=== PATIENT | female | born 1980 | race Caucasian/White ===

== ENCOUNTER 2024-08-14 10:14 | Outpatient (CLI) | payer BC, SELFPAY ==
--- NOTE | ~2024-08-14 | US_ITS ---
US transvaginal Ordering provider: Randi Robles, BINDER OPERATOR History: . Enlarged uterus . Comparison: None. Technique: endovaginal ultrasound of the pelvis (Doppler ultrasound interrogation techniques used as needed for this exam.) FINDINGS: CERVIX: Normal. UTERUS: Measures 10.4x 5.5x 5.7 cm in length which is within normal limits and is anteverted. Multip le heterogenous masses with the largest measuring 2.7 x 3.1 x 2.9 cm. ENDOMETRIUM: Normal in thickness measuring 6.8 mm. (Note: the premenopausal endometrium may measure u p to 16 mm when in the secretory phase.) No endometrial masses, cysts or fluid. CUL DE SAC: No free fluid. RIGHT OVARY: Normal in size measuring 2.8x 2.4x 2.4 cm. Normal echotexture. Doppler vascular flow pre sent. LEFT OVARY: Normal in size measuring 1.8x 1.7x 1.7 cm. Normal echotexture. Doppler vascular flow pres ent. ADNEXA: Normal. No mass. IMPRESSION: Multiple fibroids. Otherwise, normal pelvic ultrasound. Reviewed, dictated and finalized at location A.
== END 2024-08-14 10:15 | disposition home or self-care (01) ==
PROVIDERS: PCP Family Medicine; Visit Provider Nurse Practitioner
DX: E85.2 Heredofamilial amyloidosis, unspecified (principal); D25.9 Leiomyoma of uterus, unspecified
CPT/HCPCS: 76830

== ENCOUNTER 2025-08-10 01:54 | Day surgery (SDC) | payer BC, SELFPAY ==
--- NOTE | 2025-07-28 14:30 | PC.NURSE ---
[facility] has started construction of its new state of the art ER which will open Spring 2026. With this, we anticipate parking may be a challenge for some our surgical patients and families. Parking spaces are limited but are available for all Surgical, obstetrics, and ER patients sharing this lot. If you arrive and find you are having a hard time finding a parking space, please note that we understand the challenges, please drive around the hospital and park near Hospital Entrance 1. When you enter this entrance, you can ask a volunteer to direct or take you back to the surgical waiting area to check in. We appreciate everyone?s understanding of these expected challenges while we build for your future. Report to the Outpatient Waiting Room, entrance under the green pavilion located off [address], at time __6:00am on date __[phone] . Planned Procedure Time: __7:30am .? Time changes happen often and if your time is changed the preop area will call you the afternoon before. - You and your visitor will be asked to self-screen and do not enter if you have any COVID symptoms. Please call surgeon if you need to reschedule. - A mask is optional within the hospital at this time. Patients may have clear liquids (water, carbonated beverages, clear teas, apple juice) until 3 hours prior to surgery with a maximum of 20 ounces. stop at 4:30am - No food from midnight until time of surgery and no smoking, or chewing tobacco (or any form of nicotine). No chewing gum, candy or mints. Take only the following medications with a SIP of water on the morning of surgery: ____n/a DO NOT STOP ANY OF YOUR OTHER PRESCRIPTION MEDICATIONS PRIOR TO SURGERY EXCEPT THE FOLLOWING *Hold all vitamins and supplements for 3 days per anesthesiologist. Medications to discontinue per physician n/a Please no make-up, nail turkmen, hairspray, perfume, deodorant, or body powder the day of surgery.? No jewelry (including any body piercings) or valuables the day of surgery, leave them at home.? Please take a shower or bath the night before, or the morning of, surgery with an antibacterial soap.? Wear comfortable, loose fitting clothing.? - Jewelry must be removed prior to entering the operating room.? Rings and piercings that are not removed may be cut off. - The hospital will not accept responsibility for valuables.? - Please leave all valuables, including medications, at home the day of surgery. If you are going home after surgery, a licensed otr flatbed company truck driver must drive you home.? - NO public transportation without another adult if you receive anesthesia. - We recommend that an adult stay with you for 24 hours following discharge. - We also recommend that you do not drive, make important decision, drink alcoholic beverages, or take any drugs that were not prescribed by your health care provider for at least 24 hours after your discharge time. Follow any additional instructions given to you from your surgeon. Telephone instructions given to __patient/shanti and asked if any additional questions and then verbalized understanding. Patient advised to call surgeon office or pre surgery nurse liaison [phone] if any additional questions.
[2025-07-28 14:37] VITALS: BMI 37.5
--- OUTSIDE RECORDS SUMMARY | 2025-08-10 01:57 | XMS_ITS | Clinical Summary ---
Author Organization [facility] [employer] Address [address] [place] [address] Care Team Providers Care Radio Mechanic Helper Name Role Phone Prasanna Yost MD Primary Care Provider [phone] Source Comments [facility],non-owned Affiliates and Associated Physician Practices is amultiple site organization consisting of ambulatory clinics and hospital sitesin [place], [place], [place]. This disclosure is being madepursuant to the Care Everywhere program and may not contain all information available regarding this patient. Last updated 18.[facility] [employer] Allergies Active Allergy Reactions Criticality Noted Date Comments Penicillins Urticaria 05/29/2012 Medications * Be aware that medications may not be up to date on this document. Alwaysverify current medications with the patient. Cetirizine HCl (ZYRTEC ALLERGY PO) Take 1 Tab by mouth as needed Active LUTERA 0.1-20 MG-MCG tablet TAKE 1 TABLET BY MOUTH DAILY. 28 Tab 0 06/07/2016 Active Active Problems Problem Noted Date Diagnosed Date Previous section complicating 11/26/2012 Encounter for health-related screening 2 Overview (02/02/2018): Adult Abstraction Problem List Screening Dexa Scan (Bone Density): Result: Pap Smear: 03/31/14 neg 05/29/12 neg Mammogram: Result: CF Test: Result: IMO update 02 03 2018 Resolved Problems Problem Noted Date Diagnosed Date Resolved Date Encounter for supervision of other normal 08/20/2012 11/08/2012 Overview (09/12/2015): Immunizations Immunization Administration Dates Next Due FLU VACCINE TRI IIV3 SPLIT PF IM (FLUVIRIN) 02/2013 Family History Medical History Relation Name Comments Hypertension Father Arthritis Maternal Grandfather Heart Disease Maternal Grandfather Arthritis Paternal Grandfather Diabetes Paternal Grandmother Hypertension Paternal Grandmother Relation Name Status Comments Father Alive Maternal Grandfather Maternal Grandmother Alive Mother Alive Paternal Grandfather Paternal Grandmother Social History Tobacco Use Types Packs/Day Years Used Date Smoking Tobacco: Never Smokeless Tobacco: Never Alcohol Use Standard Drinks/Week Comments No 0 (1 standard drink = 0.6 oz pur e alcohol) Comments No Sex and Gender Information Value Date Recorded Sex Assigned at Not on file Legal Sex Female 1:55 PM [employer]URAL STE[employer] Gender Identity Not on file Sexual Orientation Not on file Last Filed Vital Signs Vital Sign Reading Time Taken Comments Blood Pressure 110/80 05/19/2015 12:11 PM CDT Pulse 84 05/19/2015 12:11 PM CDT Temperature 36.7 C (98 F) 12/25/2012 3:13 PM STRUCTURAL STEEL EQUIPMENT ERECTOR Respiratory Rate 18 12/25/2012 3:13 PM STRUCTURAL STEEL EQUIPMENT ERECTOR Oxygen Saturation 100% 12/23/2012 12:59 AM STRUCTURAL STEEL EQUIPMENT ERECTOR Inhaled Oxygen Concentration - - Weight 94.3 kg (208 lb) 05/19/2015 12:11 PM CDT Height 170.2 cm (5' 7) 05/19/2015 12:11 PM CDT Body Mass Index 32.58 05/19/2015 12:11 PM CDT Plan of Treatment Health Maintenance Due Date Last Done Comments LIPID TESTING 1981 MAMMOGRAM 1981 DTAP/TDAP/TD VACCINES (1 - Tdap) 01/19/2000 HEPATITIS B VACCINE (1 of 3 - 19+ 3-dose series) 01/19/2000 HPV VACCINE (1 - 3-dose SCDM series) 01/19/2008 PAP SMEAR 05/19/2016 05/19/2015, 03/31/2014, 05/29/2012 DEPRESSION SCREENING 11/05/2024 COVID-19 VACCINE ( - 2023-2 5 season) 2025 INFLUENZA VACCINE (#1) 2025 11/08/2012 ZOSTER VACCINE (1 of 2) 2031 HEPATITIS C SCREENING Completed 05/29/2012 HIV SCREENING Completed 05/29/2012 HIB VACCINE Aged Out No longer eligi ble based on patient's age to complete this topic MENINGOCOCCAL (Group B) VACCINE SHARED DECISION-MAKING Aged Out No longer eligible based on patient's age to complete this topic MENINGOCOCCAL GROUPS A/C/Y/W VACCINE Aged Out No longer eligible b ased on patient's age to complete this topic PNEUMOCOCCAL VACCINE Aged Out No long er eligible based on patient's age to complete this topic Procedures Procedure Name Priority Date/Time Associated Diagnosis Comments PAP IG RFLX HPV ASCU Routine 05/19/2015 5:30 PM CDT Well female exam with routine gynecological exam HEPATITIS C AB W RFLX VERIFICATION 05/29/2012 4:21 PM CDT HIV-1 HIV-2 ANTIBODY Routine 05/29/2012 4:21 PM CDT Previous section complicating , antepartum condition or complication from Last 3 Months or Most Recently Relevant to Health Maintenance Results * PAP SMEAR IG RFLX HPV ASCU (PO REF LAB) (05/19/2015 5:30 PM CDT) Diagnosis [facility] INSURANCE BILL Comment:NEGATIVE FOR INTRAEP ITHELIAL LESION AND MALIGNANCY. Specimen Adequacy [facility] INSURANCE BILL Comment: Satisfactory for evaluation. Endocervical and/or squamous metaplastic cells (endocervical component) are present. Clinician Provided ICD9 [facility] INSURANCE BILL Comment:V72.31 ; Routine operations intern ecological examination Performed by [facility] INSURANCE BILL Comment:Radha Chapa, Cytot echnologist (ASCP) Comment . [facility] INSURANCE BILL Note [facility] INSURANCE BILL Comment: The Pap smear is a screening test designed to aid in the detection of premalignant and malignant conditions of the uterine cervix. It is not a diagnostic procedure and should not be used as the sole means of detecting cervical cancer. Both false-positive and false-negative reports do occur. . [facility] CPT Code Automation [facility] INSURANCE BILL Comment: This liquid based ThinPrep(R) pap test was screened with the use of an image guided system. Note [facility] INSURANCE BILL Comment: The HPV DNA reflex criteria were not met with this specimen result therefore, no HPV testing was performed. . Miscellaneous samples (specimen) PART OF UTERINE CERVIX / Unknown 05/19/2015 5:30 PM CDT 05/21/2015 3:18 AM CDT Narrative [facility] INSURANCE BILL - 05/24/2015 5:13 PM CDT No. of containers..01 CYTYC Thin Prep Vial Resulting Agency Comment [facility] [phone] [place] Jossie Alberts MD LAB - PATHOLOGY/CYTOLOGY ORDERA BLES Final Result Performing Organization Address City/[facility] Co de Phone Number [facility] INSURANCE BILL [address] [place] [address] * HEPATITIS C AB W RFLX ALT AB (PO REF LAB) (05/29/2012 4:21 PM CDT) Hepatitis C Antibody <0.1 0.0 - 0.9 s/co ratio [facility] INSURANCE BILL 05/29/2012 4:21 PM CDT 05/29/2012 6:50 PM CDT Narrative Resulting Agency [facility] [address] [facility] [facility] [phone] us Jossie Alberts MD LAB - CHEMISTRY ORDERABLES Kylah l Result Performing Organization Address [facility] Co de Phone Number [facility] INSURANCE BILL [address] [place] [address] * HIV-1 HIV-2 ANTIBODY (05/29/2012 4:21 PM CDT) HIV-1 Antibody O.D. Ratio <1.00 <1.00 [facility] INSURANCE BILL Comment:Index Value: Specime n reactivity relative to the negative cutoff. HIV-1/HIV-2 Non Reactive Non Reactive [facility] INSURANCE BILL Blood specimen (specimen) BLOOD SPECIMEN / Unknown 05/29/2012 4:21 PM CDT 05/29/2012 6:50 PM CDT Narrative Resulting Agency Comment [facility] [place] [address] [facility] [phone] us Jossie Alberts MD LAB - CHEMISTRY ORDERABLES Kylah hernandez Result [facility] INSURANCE BILL [address] [place] [address] from Last 3 Months or Most Recently Relevant to Health Maintenance Insurance AN[employer] Advance Directives * FULL RESUSCITATION (Latest Code Status on File) Date Activated Date Inactivated Comments 12/22/2012 10:09 PM 12/25/2012 8:44 PM * FULL RESUSCITATION Date Activated Date Inactivated Comments 12/22/2012 9:32 PM 12/22/2012 10:09 PM * FULL RESUSCITATION Date Activated Date Inactivated Comments 12/20/2012 11:42 PM 12/22/2012 9:32 PM Care Teams Radio Mechanic Helper Relationship Specialty Start Date End Date Prasanna Yost MD [address] [place] [address] PCP - General Family Medicine 05/19/15
--- OUTSIDE RECORDS SUMMARY | 2025-08-10 01:57 | XMS_ITS | Clinical Summary ---
Author Organization [address] Address [address] [place] [id number] Care Team Providers Care Events Traffic Controller Name Role Phone Samantha Enamorado MD Primary Care Provi kai Allergies Active Allergy Reactions Criticality Noted Date Comments Penicillins Hives,Urticaria Medium 04/05/1999 Medications cetirizine (ZyrTEC) 10 mg tablet Take 1 tablet (10 mg total) by mouth as needed Active norethindrone-e. estradioL-iron (11/24) 1 mg-20 mcg (21)/75 mg (7) per tablet Take 1 tablet by mouth daily Active Active Problems Problem Noted Date Diagnosed Date Class 2 obesity due to exces s calories without serious comorbidity with body mass index (BMI) of 36.0 to 36.9 in adult 08/28/2023 Assessment & Plan (08/28/2023 9:20 AM CDT): Chronic, stable Reviewed low carbs, healthy activity BMI Follow-up includes: nutrition counseling. Immunizations Immunization Administration Dates Next Due Influenza, Quadrivalent, Negra l Culture-based MDCK, Preservative Free, Antibiotic Free, Intramuscular 09/05/2022 Influenza, Quadrivalent, Spl it, Preservative Free, Intramuscular 08/28/2023 Influenza, Trivalent, Preservative Free, Intramu scular 11/08/2012 Tdap 08/28/2023 Surgical History Surgery Date Site/Laterality Comments SECTION 03/02/06, 01/11/09, 12/22/12 Family History Medical History Relation Name Comments Obesity Brother Chetan Jamaly Cancer Father Mynor ReederShantell Fuchs' dystrophy Father Mynor Shantell Hyperlipidemia Father Mynor Shantell Hypertension Father Mynor Shantell Obesity Father Mynor ReederShantell Heart attack Maternal Grandfather Zach Rodriguesgege Lung cancer Maternal Grandfather Zach Rodriguesgege Diabetes Maternal Grandmother Bri Anemia Mother Remedios Shantell Cancer Mother Remedios Shantell Obesity Mother Remedios Shantell Obesity Mother's Sister 1 Patricia Obesity Mother's Sister 2 Nishi Obesity Mother's Sister 3 Marta Pancreatic cancer Paternal Grandfather Alzheimer's disease Paternal Grandmother Rhona McAnall y Diabetes Paternal Grandmother Rhona Shantell Vision loss Paternal Grandmother Rhona Stinson Rashes / Skin problems Son Hank Yang Relation Name Status Comments Brother Chetan Jamaly Father Mynor ReederShantell Maternal Grandfather Zach Hussein Maternal Grandmother Bri Mother Remedios Shantell Mother's Sister 1 Patricia Mother's Sister 2 Nishi Mother's Sister 3 Marta Paternal Grandfather Paternal Grandmother Rhona Jamaly Son Hank Yang Social History Tobacco Use Types Packs/Day Years Used Date Smoking Tobacco: Never Smokeless Tobacco: Never AUDIT-C Answer Date Recorded Q1: How often do you have a drink containing alc ohol? 2-4 times a month 08/28/2023 Q2: How many drinks containi ng alcohol do you have on a typical day when you are drinking? 1 or 2 08/28/2023 Q3: How often do you have si x or more drinks on one occasion? Never 08/28/2023 PHQ-2 Answer Date Recorded PHQ-2 Total Score (If total score is 3 or more points, staff should administer the PHQ-9) 0 08/28/2023 Personal Safety Answer Date Recorded Getting School Help Needed Not on file 10/17 Comments No Sex and Gender Information Value Date Recorded Sex Assigned at Not on file Legal Sex Female 10:56 AM CDT Gender Identity Not on file Sexual Orientation Not on file Obstetrics History Last Filed Vital Signs Vital Sign Reading Time Taken Comments Blood Pressure 120/78 08/28/2023 8:53 AM CDT Pulse 93 08/28/2023 8:53 AM CDT Temperature 36.2 C (97.1 F) 08/28/2023 8:53 AM CDT Respiratory Rate 12 08/28/2023 8:53 AM CDT Oxygen Saturation 97% 08/28/2023 8:53 AM CDT Inhaled Oxygen Concentration - - Weight 105.2 kg (232 lb) 08/28/2023 8:53 AM CDT Height 170.2 cm (5' 7) 08/28/2023 8:53 AM CDT Body Mass Index 36.34 08/28/2023 8:53 AM CDT Plan of Treatment Health Maintenance Due Date Last Done Comments Cervical Cancer Screening 1981 Hepatitis C Screening 1981 Hepatitis B Screening 1999 Regular Well Visit/Exam 18-64 1999 HPV Vaccines (1 - 3-dose SCDM series) 01/19/2008 Depression Screening 08/28/2024 08/28/2023, 08/28/2023 Covid-19 Vaccine ( - season) 2025 03/06/2021, 02/12/2021 Influenza Vaccine (#1) 2025 , 09/05/2022, 11/08/2012 Breast Cancer Screening-Mammogram 08/13/2025 08/13/2024, 07/05/2023 DTaP/Tdap/Td Vaccine (2 - Td or Tdap) 08/28/2033 08/28/2023 Pneumococcal vaccine <65 Aged Out No longer eligible based on patient's age to complete this topic Varicella Vaccines Discontinued Procedures Procedure Name Priority Date/Time Associated Diagnosis Comments SCREENING MAMMOGRAM BILATERAL W SRINIVAS Schedule Routine, Read Routine (OP Routine) 08/13/2024 11:44 AM CDT Screening mammogram, encounter for from Last 3 Months or Most Recently Relevant to Health Maintenance Results * Screening Mammogram Bilateral W Srinivas (08/13/2024 11:44 AM CDT) Anatomical Region Laterality Modality Breast Bilateral Mammography Narrative 08/14/2024 9:48 AM CDT Mammogram Technique: Bilateral Digital Breast Tomosynthesis, Bilateral C-view 2D Screening mammogram. Views obtained: bilateral craniocaudal and bilateral mediolateral oblique. Computer Aided Detection was performed. Mammogram Findings: The present examination has been compared to a prior imaging study performed at [facility] on 07/05/2023. There are scattered areas of fibroglandular density. There is no suspicious abnormality in either breast. Impression: There is no mammographic evidence of malignancy. Annual screening mammography is recommended. OVERALL FINAL ASSESSMENT: BI-RADS CATEGORY 1: Negative. Procedure Note Giulia Isbell MD - 08/14/2024 Mammogram Technique: Bilateral Digital Breast Tomosynthesis, Bilateral C-view 2D Screening mammogram. Views obtained: bilateral craniocaudal and bilateral mediolateral oblique. Computer Aided Detection was performed. Mammogram Findings: The present examination has been compared to a prior imaging study performed at [facility] on 07/05/2023. There are scattered areas of fibroglandular density. There is no suspicious abnormality in either breast. Impression: There is no mammographic evidence of malignancy. Annual screening mammography is recommended. OVERALL FINAL ASSESSMENT: BI-RADS CATEGORY 1: Negative. us Self Screening Mammogram IMG MAMMO PROCEDURES Fi nal Result from Last 3 Months or Most Recently Relevant to Health Maintenance Insurance [facility] CHOICE PLUS [facility] HMO/PPO Address: [facility] [address] [place] [address] [facility] [employer] [facility] Care Teams Events Traffic Controller Relationship Specialty Start Date End Date Samantha Enamorado MD [address] [place] [address] PCP - General Family Medicine 08/28/23
[2025-08-10] MEDS: ACETAMINOPHEN 500 MG TABLET 1000 MG PO (06:30)
[2025-08-10] MEDS: LACTATED RINGERS 1,000 ML 30 ML IV CONT (06:30)
[2025-08-10 07:00] VITALS: BP 124/61; PULSE 80; RESP 16; TEMP 36.7; O2SAT 98
--- NOTE | 2025-08-10 07:09 | WPDANESEPPF ---
Anes - Initial Pre Proc Eval Procedure: Operation Date: 08/10/25 07:30 Proposed Procedures p Hysteroscopy Dilation and Curettage - Giuila Long MD Date/Time: 08/10/25 07:09 Surgeon: Giulia Long MD Pre Op Diagnosis: Abnormal Uterie Bleeding Patient Data Age: 45 Gender: F Height: 1.7 m Weight: 108.86 kg Allergies Allergy/AdvReac Type Severity Reaction Status Date / Time Penicillins Allergy Unknown Unknown Verified 07/28/25 14:41 Home Medications ?Medication ?Instructions ?Recorded ?Confirmed ?Type cholecalciferol (vitamin D3) PO .qweekly 07/28/25 History cyanocobalamin (vitamin B-12) 500 500 mcg PO DAILY 07/28/25 07/28/25 History mcg tablet (Vitamin B-12) Patient hx anesthesia problems: none Family hx anesthesia problems: none Results Review: All pre-operative results and documents have been reviewed as part of the pre-operative evaluation. [facility] Family History Family History (Updated 07/02/14 @ 07:13 by DOCTOR UNKNOWN) Father Hypertension Social History Social History Smoking status: Never smoker Second hand tobacco smoke exposure: No Alcohol intake: current Alcohol use details: rarely/socially/less than 6x a year Substance use: never Substance use type: does not use Living arrangements: with family Spiritual care concerns: No Anes - Eval Final PreProcedure Day of Procedure 08/10/25 07:09 Patient weight: obese Heart: regular rate and rhythm Lungs: clear to auscultation Airway: Mallampati scale class II Neurological: alert and oriented Last oral intake: >/= 8 hours ASA classification: II Emergent: no Anesthetic plan: proceed Anesthesia type and monitoring: general GIVS and standard monitoring Results Review: All pre-operative results and documents have been reviewed as part of the pre-operative evaluation. Informed Consent: The patient's anesthetic plan and its attendant risks and benefits were discussed with the patient/family/POA. Questions were solicited and answers provided to the satisfaction of the patient/family/POA.
--- NOTE | 2025-08-10 07:18 | WPDHPUPDATE1 ---
History and Physical Update Update Date/Time: 08/10/25 07:18 History and Physical has been reviewed, including an updated exam of the patient. There are NO changes in the patient's condition. Risks, benefits, and alternatives have been discussed and questions answered. Patient agrees to proceed with procedure.
--- NOTE | 2025-08-10 07:18 | PM.HPGS ---
History of Present Illness History of Present Illness Consent: Risks, benefits, and alternatives have been discussed and questions answered. Patient agrees to proceed with procedure. Chief complaint: Abnormal Uterie Bleeding Narrative: Linda Yang is a 45 year old female With heavy cycles since October of 2024 when she stops her control. Patient with slight anemia with a hemoglobin of 11.5. It was recommended to undergo D&C hysteroscopy for further evaluation. The patient has known fibroids. Risks infection, bleeding, perforation, and possible pathology are reviewed. Patient voices understanding and agrees to proceed. Review of Systems Review of Systems: not repeated day of surgery; patient states no changes in status PMFSH Surgical History Surgical History (Updated 08/10/25 @ 07:20 by Giulia Long MD) History of X3 Family History Family History (Updated 07/02/14 @ 07:13 by DOCTOR UNKNOWN) Father Hypertension Social History Social History Smoking status: Never smoker Second hand tobacco smoke exposure: No Alcohol intake: current Alcohol use details: rarely/socially/less than 6x a year Substance use: never Substance use type: does not use Living arrangements: with family Spiritual care concerns: No Meds Home Medications and Allergies Home Medications ?Medication ?Instructions ?Recorded ?Confirmed ?Type cholecalciferol (vitamin D3) PO .qweekly 07/28/25 History cyanocobalamin (vitamin B-12) 500 500 mcg PO DAILY 07/28/25 07/28/25 History mcg tablet (Vitamin B-12) Allergies Allergy/AdvReac Type Severity Reaction Status Date / Time Penicillins Allergy Unknown Unknown Verified 07/28/25 14:41 Exam Const: General: healthy appearing and alert Orientation/consciousness: patient oriented x3 Resp: Effort & Inspection: normal respiratory effort : External Female Exam: normal external appearance Speculum Exam - Vagina: normal appearance of the vagina and normal vaginal discharge Speculum Exam - Cervix: normal appearance of the cervix Bimanual exam- vagina & uterus: enlarged (Approximately 12 weeks on exam and firm) Bimanual Exam- Adnexa, other: normal adnexae and No adnexal tenderness Neuro: General: patient oriented x3 Assessment and Plan Assessment and plan (1) Menorrhagia: Code(s): N92.0 - Excessive and frequent menstruation with regular cycle Status: Acute Assessment and Plan: Plan to proceed with D&C hysteroscopy.
--- NOTE | 2025-08-10 07:45 | S_PTH ---
PATIENT: Linda Yang LOC: [facility] U#:[id number] AGE/SX: 45/F ROOM: RE08/10/[address]: Giulia Long MD : [id number] BED: DIS: 08/10/2025 SPEC #: [id number] RECD: 08/10/25 10:41 STATUS: ADRIANNA RELaura #: [id number] JULIETTE: 08/10/25 07:[address]: Giulia Long DEPT: [facility] Surgical RECD BY: Janis Rubin ENTERED: 08/10/25 10:41 SP TYPE: Surgical OTHR DR: Samantha EnamoradoMD Tissues: A - Endometrial Curettings Procedures: Hematoxylin and Eosin Stain Gross and Microscopic Level 4
--- NOTE | 2025-08-10 07:47 | P.OP_ITS ---
Procedure Note - Detailed Date of Procedure 08/10/25 Pre-op Diagnosis Menorrhagia Post-op Diagnosis Same Procedure Performed D&C hysteroscopy Surgeon Giulia Long MD Anesthesia MAC Findings Uterus sounds to 10cm and appears grossly normal except for a slight bulge consistent with an intramural fibroid on the anterior left fundus. Description of Procedure The patient was taken to the operating room and placed under anesthesia in the dorsal lithotomy position. She has prepped and draped in the usual sterile fashion. [place] speculum was placed in the vagina and the cervix grasped on the anterior tenaculum. The uterus is sounded to 10cm. The hysteroscope was placed and no abnormalities were noted. Hysteroscope was removed and the sharp curette used to curette the endometrium until good uterine cry was noted in all areas. Instruments were then removed. Sponge, needle and instrument counts are correct per the OR staff. The patient is awakened from anesthesia and taken to recovery in stable condition. Estimated Blood Loss 5 Drains No Packing No Pathology Yes (Endometrial curettings) Complications No immediate complications Condition Stable Disposition PACU
[2025-08-10 07:52] VITALS: BP 118/66; PULSE 87; RESP 18; O2SAT 96
[2025-08-10 08:09] LABS: BEDSIDEPREGUCG Negative (Negative)
[2025-08-10 08:20] VITALS: BP 115/59; PULSE 68; RESP 16; O2SAT 99
[2025-08-10 08:40] VITALS: BP 116/71; PULSE 67; RESP 16
== END 2025-08-10 08:51 | disposition home or self-care (01) ==
PROVIDERS: PCP Family Medicine; Visit Provider Obstetrics & Gynecology Gynecology
PROC: 0U5B8ZZ Destruction of Endometrium, Via Natural or Artificial Opening Endoscopic (ICD-10-PCS; CPT 58563; principal; 2025-08-10 07:30)
DX: N92.0 Excessive and frequent menstruation with regular cycle (principal); E66.9 Obesity, unspecified; Z68.37 Body mass index [BMI] 37.0-37.9, adult; Z98.890 Other specified postprocedural states
CPT/HCPCS: 58558; 88305; A9270; J1885; J2003; J2250; J2704; J3010; J7120